=== PATIENT | male | born 1950 | race Caucasian/White ===

== ENCOUNTER 2020-10-30 13:30 | Inpatient (IN) | payer OTHER ==
[~2020-10-30] VITALS: Ht 180.3 cm; Wt 86.7 kg
[2020-10-30 13:33] VITALS: BP 147/85
[2020-10-30] MEDS ORDERED: PROTONIX40 M2 PO (13:36)
[2020-10-30] MEDS ORDERED: COZAAR 25 MG TA25 M1 PO (13:36)
[2020-10-30] MEDS ORDERED: TOPROL XL50 MG PO (13:37)
[2020-10-30] MEDS ORDERED: GRALISE300 MG PO (13:37)
[2020-10-30] MEDS ORDERED: PRAVASTATIN SOD20 MG PO (13:38)
[2020-10-30] MEDS ORDERED: NORCO 10-325 T1 EACH PO (13:38)
[2020-10-30] MEDS ORDERED: PHENERGAN 25 MG25 MG PO (13:38)
[2020-10-30 13:59] LABS: ABSOLUTE BASOPHILS 0.1 thou/uL (0.0-0.2); ABSOLUTE EOSINOPHILS 0.1 thou/uL (0.0-0.7); ABSOLUTE LYMPHOCYTES 0.8 thou/uL (0.8-5.3); ABSOLUTE MONOCYTES 0.4 thou/uL (0.0-1.2); ABSOLUTE NEUTROPHILS 6.9 thou/uL (1.6-8.1); BASOPHILS 0.6 %; EOSINOPHILS 1.7 %; HEMATOCRIT 33.6 % (42.0-52.0); HEMOGLOBIN 11.3 gm/dL (14.0-18.0); LYMPHOCYTES 9.8 %; MCH 26.4 pg (26.0-34.0); MCHC 33.5 g/dL (28.0-37.0); MCV 78.8 fL (80.0-100.0); MONOCYTES 4.8 %; MPV 7.7 fl. (7.2-11.1); NUCLEATED RBCS 0 /100WBC; PLATELET COUNT* 218 thou/uL (150-400); POLYS 83.1 %; RBC 4.27 mil/uL (4.50-6.00); RDW-CV 15.5 % (10.5-14.5); WBC 8.3 thou/uL (4.0-11.0)
[2020-10-30 14:09] LABS: CALCIUM 8.3 mg/dL (8.5-10.1); CREATININE 0.8 mg/dL (0.6-1.3)
[2020-10-30 14:14] LABS: ALBUMIN 3.4 g/dL (3.4-5.0); TOTAL BILIRUBIN 0.1 mg/dL (<0.1-1.0); TOTAL PROTEIN 6.3 g/dL (6.4-8.2)
--- NOTE | 2020-10-30 14:20 | EKG ---
[place] [address] ELECTROCARDIOGRAM REPORT Name: JADENAB Chino Room: [facility].#: [id number] Admission: Attend Phys: Discharge: Date of : 54 Date of Service: 10/30/20 1350 Report #: [id number] THIS REPORT FOR: //name// [facility] ED Test Date: 2020-10-30 Test Time: 13:50:35 Pat Name: AB STANLEY Department: Room: Gender: [employer]: ALYSSA : 1950 Requested By: Jonathan Shore Order Number: [id number] MD: Samuel Figueroa Measurements Intervals [place] Rate: 63 P: 41 AK: 182 QRS: 59 QRSD: 106 T: 63 QT: 423 QTc: 434 Interpretive Statements Sinus rhythm No previous ECG available for comparison Electronically Signed On 10-30-2020 14:19:44 CDT by Samuel Figueroa [email or web address] <ELECTRONICALLY SIGNED> By: Samuel Figueroa MD, [facility] 10/30/20 1419 1350 1350 Samuel Figueroa MD, FACC /EPI
[2020-10-30 19:58] VITALS: BP 155/87
[2020-10-30 20:15] VITALS: BP 141/84
[2020-10-30] MEDS ORDERED: ASA81BEC PO (22:36)
[2020-10-30] MEDS ORDERED: COQ-10100 MG PO (22:37)
[2020-10-30] MEDS ORDERED: VITAMIN D32400 UNIT/ PO (22:40)
[2020-10-30] MEDS ORDERED: CENTRUM ADULTS1 EACH PO (22:41)
[2020-10-30] MEDS ORDERED: EMERGEN-C 500500 MG PO (22:59)
[2020-10-30] MEDS ORDERED: FISH OIL 1,0001 EAC9 PO (23:00)
[2020-10-30] MEDS ORDERED: MELATONIN10 M3 PO (23:01)
[2020-10-31] VITALS: BP 139/87
[2020-10-31 03:30] VITALS: BP 146/85
[2020-10-31 04:07] LABS: HEMOGLOBIN 11.6 gm/dL (14.0-18.0); MCH 26.1 pg (26.0-34.0); MCHC 33.1 g/dL (28.0-37.0); MCV 78.7 fL (80.0-100.0); MPV 8.1 fl. (7.2-11.1); RBC 4.45 mil/uL (4.50-6.00); RDW-CV 15.2 % (10.5-14.5); WBC 7.4 thou/uL (4.0-11.0)
[2020-10-31 04:18] LABS: CALCIUM 8.1 mg/dL (8.5-10.1); CREATININE 0.7 mg/dL (0.6-1.3); POTASSIUM 3.5 mmol/L (3.5-5.1)
[2020-10-31 08:00] VITALS: BP 168/99
[2020-10-31 14:31] LABS: ALBUMIN 3.3 g/dL (3.4-5.0); CALCIUM 8.1 mg/dL (8.5-10.1); CREATININE 0.7 mg/dL (0.6-1.3); POTASSIUM 3.8 mmol/L (3.5-5.1); TOTAL BILIRUBIN 0.5 mg/dL (<0.1-1.0); TOTAL PROTEIN 6.6 g/dL (6.4-8.2)
--- NOTE | 2020-10-31 14:59 | 2DMMODE ---
[place] [address] 2 D/M-MODE ECHOCARDIOGRAM Name: AB STANLEY Room: [address] [place] [facility]#: [id number] Admission: 10/31/20 Attend Phys: Luis Patel Discharge: Date of : 54 Date of Service: 10/31/20 1459 Report #: [id number] THIS REPORT FOR: cc: Philip Donovan MD, Todd MD Blick, David R. MD [facility] ~ APPROVED REPORT Study performed: 10/31/2020 13:46:34 EXAM: Comprehensive 2D, Doppler, and color-flow Echocardiogram Patient Location: In-Patient Room #: [facility] Status: routine BSA: 2.08 HR: 65 bpm BP: 168/99 mmHg Rhythm: NSR Other Information Study Quality: Good Indications CVA/TIA Echo Enhancing Agent Indication: Rule out Shunt Agent(s) / Amount(s) Used: Agitated Saline 10 cc 2D Dimensions IVSd: 12.30 (7-11mm) LVOT Diam: 20.65 (18-24mm) LVDd: 45.58 mm PWd: 11.00 (7-11mm) Ascending Ao: 34.68 (22-36mm) LVDs: 25.73 (25-40mm) Aortic Root: 33.40 mm Volumes Left Atrial Volume (Systole) LA ESV Index: 34.90 mL/m2 Aortic Valve AoV Peak Bhavik.: 1.46 m/s AO Peak Gr.: 8.53 mmHg LVOT Max P.11 mmHg AO Mean Gr.: 4.32 mmHg LVOT Mean P.12 [place] [address] 2 D/M-MODE ECHOCARDIOGRAM Name: AB STANLEY Room: [address] [place] .R.#: [id number] Admission: 10/31/20 Attend Phys: Luis Patel Discharge: Date of : 54 Date of Service: 10/31/20 1459 Report #: [id number] LVOT Max V: 1.42 m/s AO V2 VTI: 26.81 cm LVOT Mean V: 0.78 m/s KENAN (VTI): 3.64 cm2 LVOT V1 VTI: 29.18 cm Mitral Valve E/A Ratio: 2.16 MV Decel. Time: 169.90 ms MV E Max Bhavik.: 1.05 m/s MV PHT: 49.27 ms MVA (PHT): 4.47 cm2 TDI E/Lateral E': 11.67 E/Medial E': 9.55 Medial E' Bhavik.: 0.11 m/s Lateral E' Bhavik.: 0.09 m/s Pulmonary Valve PV Peak Bhavik.: 1.12 m/s PV Peak Gr.: 5.00 mmHg Tricuspid Valve RAP Estimate: 5.00 mmHg TR Peak Gr.: 37.45 mmHg RVSP: 42.00 mmHg PA Pressure: 42.00 mmHg Left Ventricle The left ventricle is normal size. There is normal LV segmental wall motion. Mild concentric left ventricular hypertrophy. Left ventricular systolic function is normal. The left ventricular ejection fraction is within the normal range. LVEF is 60-65%. Grade IV - fixed restrictive diastolic dysfunction. Right Ventricle The right ventricle is normal size. The right ventricular systolic function is normal. Atria Left atrium is mildly dilated. The interatrial septum is intact with no evidence for an atrial septal defect. The right atrium size is normal. Aortic Valve The aortic valve is normal in structure. No aortic regurgitation is present. There is no aortic valvular stenosis. Mitral Valve The mitral valve is normal in structure. Mild [place] [address] 2 D/M-MODE ECHOCARDIOGRAM Name: AB STANLEY Room: [address] [place] ..#: [id number] Admission: 10/31/20 Attend Phys: Luis Patel Discharge: Date of : 54 Date of Service: 10/31/20 1459 Report #: [id number] No evidence of mitral valve stenosis. Tricuspid Valve The tricuspid valve is normal in structure. Mild tricuspid regurgitation. estimated pa pressure 45 mm Hg Pulmonic Valve Pulmonic valve is grossly normal in structure. There is trace pulmonic valvular regurgitation. Great Vessels The aortic root is normal in size. IVC is normal in size and collapses >50% with inspiration. Pericardium There is no pericardial effusion. <Conclusion> LVEF is 60-65%. Left atrium is mildly dilated. Mild mitral regurgitation. The interatrial septum is intact with no evidence for an atrial septal defect. Mild tricuspid regurgitation. estimated pa pressure 45 mm Hg <ELECTRONICALLY SIGNED> By: Samuel Figueroa MD, FACC 10/31/20 1459 1459 1459 Samuel Figueroa MD, FACC /INF
[2020-10-31 19:45] VITALS: BP 126/66
[2020-11-01] VITALS: BP 130/74
[2020-11-01 05:00] VITALS: BP 123/66
[2020-11-01 06:26] LABS: CHOLESTEROL 195 mg/dL (<200); HDL CHOLESTEROL 46 mg/dL (>40); LDL CHOLESTEROL 133 mg/dL (<100); TC:HDL 4.2 Ratio (Not establshd); TRIGLYCERIDE 84 mg/dL (<150); VLDL 17 mg/dL (<40)
[2020-11-01 06:40] LABS: SERUM ASSESSMENT Clear
[2020-11-01 07:08] LABS: GLYCOHEMOGLOBIN (HGB A1C) 5.8 % (4.8-5.6)
[2020-11-01 07:56] VITALS: BP 139/87
[2020-11-01 12:00] VITALS: BP 128/78
[2020-11-01 16:00] VITALS: BP 112/67
[2020-11-02] VITALS (7 sets, daily range): BP systolic 104–136; BP diastolic 63–85
[2020-11-02] MEDS ORDERED: TOPAMAX 25 MG T25 M1 PO (05:49)
[2020-11-02 06:10] LABS: ABSOLUTE LYMPHOCYTES 1.6 thou/uL (0.8-5.3); ABSOLUTE MONOCYTES 0.8 thou/uL (0.0-1.2); ABSOLUTE NEUTROPHILS 7.8 thou/uL (1.6-8.1); BASOPHILS 0.4 %; EOSINOPHILS 0.3 %; HEMATOCRIT 32.1 % (42.0-52.0); LYMPHOCYTES 15.2 %; MCH 26.7 pg (26.0-34.0); MCHC 34.4 g/dL (28.0-37.0); MCV 77.5 fL (80.0-100.0); MONOCYTES 8.2 %; NUCLEATED RBCS 0 /100WBC; PLATELET COUNT* 214 thou/uL (150-400); POLYS 75.9 %; RBC 4.14 mil/uL (4.50-6.00); RDW-CV 15.4 % (10.5-14.5); WBC 10.3 thou/uL (4.0-11.0)
[2020-11-02 06:22] LABS: ALBUMIN 3.1 g/dL (3.4-5.0); CALCIUM 8.2 mg/dL (8.5-10.1); CREATININE 0.8 mg/dL (0.6-1.3); POTASSIUM 3.8 mmol/L (3.5-5.1); TOTAL BILIRUBIN 0.4 mg/dL (<0.1-1.0); TOTAL PROTEIN 6.1 g/dL (6.4-8.2)
== END 2020-11-02 11:10 | disposition home or self-care (01) | DRG 149 ==
LOC: M.ERS 13:30 → M.TBA-ER 16:25 → M.2W 16:25 → M.TBA-ER 16:25 → M.3W 19:57 → M.2W 20:23
PROVIDERS: Emergency Medicine Emergency Medical Services; Family Medicine; Internal Medicine; ADMIT Internal Medicine; ATTEND Internal Medicine
DX: H81.4 Vertigo of central origin (principal); E86.0 Dehydration; I10 Essential (primary) hypertension; E78.5 Hyperlipidemia, unspecified; K21.9 Gastro-esophageal reflux disease without esophagitis; G43.809 Other migraine, not intractable, without status migrainosus; T67.5XXA Heat exhaustion, unspecified, initial encounter; X58.XXXA Exposure to other specified factors, initial encounter; Z20.822 Contact with and (suspected) exposure to COVID-19; Y93.89 Activity, other specified; Z88.1 Allergy status to other antibiotic agents; Z88.8 Allergy status to other drugs, medicaments and biological substances; Z79.82 Long term (current) use of aspirin; Z79.899 Other long term (current) drug therapy; Y92.89 Other specified places as the place of occurrence of the external cause; Y99.8 Other external cause status